=== PATIENT | male | born 1975 | race Caucasian/White ===

== ENCOUNTER 2020-05-16 09:57 | Day surgery (SDC) | payer MEDICARE, OTHER ==
[~2020-05-16] VITALS: Ht 177.8 cm; Wt 73.9 kg
[~2020-05-16 09:57] MED LIST: Bactrim Ds Tab1 EACH PO; DAPS100 PO; DAPSONE PO; GABA300 PO; GABA400 PO; HYDR1TAB94 PO; IBU800 M1 PO; Norco 5-325 Ta1 EACH PO; ZOLOFT100 MG PO
== END 2020-05-16 11:36 | disposition home or self-care (01) ==
LOC: ORSCSDS 09:57
PROVIDERS: Internal Medicine Gastroenterology
PROC: 0DB98ZX Excision of Duodenum, Via Natural or Artificial Opening Endoscopic, Diagnostic (ICD-10-PCS; principal; 2020-05-16 11:00)
PROC: 0DB68ZX Excision of Stomach, Via Natural or Artificial Opening Endoscopic, Diagnostic (ICD-10-PCS; principal; 2020-05-16 11:00)
DX: K90.0 Celiac disease (principal); B19.20 Unspecified viral hepatitis C without hepatic coma; K74.60 Unspecified cirrhosis of liver; K29.70 Gastritis, unspecified, without bleeding; K29.80 Duodenitis without bleeding; F41.8 Other specified anxiety disorders; F43.10 Post-traumatic stress disorder, unspecified; Z87.891 Personal history of nicotine dependence; Z79.899 Other long term (current) drug therapy
CPT/HCPCS: 88305; 88342; J2704; J7120